=== PATIENT | male | born 1945 | race Caucasian/White ===

== ENCOUNTER 2021-06-21 23:50 | Emergency (ER) | payer MEDICARE, SELFPAY ==
[2021-06-22 00:01] VITALS: BP 100/51; PULSE 75; RESP 16; O2SAT 95; BMI 31.8
--- NOTE | 2021-06-22 00:14 | ED_ITS ---
History of Present Illness General Chief Complaint: Epistaxis Stated Complaint: Epistaxis Time Seen by Provider: 06/22/21 00:13 Source: patient and EMS Mode of arrival: EMS Limitations: no limitations History of Present Illness HPI Narrative: Patient is on Eliquis complaining of epistaxis off and on from the right nostril history of same in the past no black stools not actively bleeding at this time no dizziness no passing-out Related Data Allergies Allergy/AdvReac Type Severity Reaction Status Date / Time No Known Allergies Allergy Verified 06/22/21 00:07 Review of Systems Review of Systems: Yes all other systems are reviewed and are negative [facility] Social History Social History Advance Directives: No Physical Exam Vital Signs: Vital Signs: Last Vital Signs Pulse 75 06/22/21 00:01 Resp 16 06/22/21 00:01 BP 100/51 L 06/22/21 00:01 Pulse Ox 95 06/22/21 00:01 BMI result Body Mass Index 31.8 Appearance: Alert. Oriented X3. No acute distress. Eyes: No pallor or icterus ENT: Pharynx normal. Oral Mucosa moist dried blood on the septum on the right side no blood clots Neck: Normal inspection. Neck supple. CVS: Normal heart rate and rhythm. Pulses normal. Respiratory: No respiratory distress. Equal air entry bilateral, no wheezing/rales/rhonchi Abdomen: Soft and nontender. Bowel sounds are present, no mass palpable, no CVA tenderness Skin: Skin warm and dry. Normal skin color. Normal skin turgor. Extremities: No lower extremity edema. No calf tenderness Neuro: Oriented X 3. No motor deficit. MDM - Epistaxis MDM Narrative Medical decision making narrative: Patient with minor anterior epistaxis secondary to use of Eliquis area was cauterized bleeding stopped lab workup showed elevated creatinine to 1.58 BUN 72 patient does not know about renal insufficiency no labs available will give him a L bolus advised to follow-up with PCP Differential Diagnosis Differential diagnosis: Likely anterior epistaxis Lab Data Attestation: I reviewed the patient's lab results. Result diagrams: 06/22/21 00:42 06/22/21 00:42 Labs: Lab Results 06/22/21 06/22/21 06/22/21 Range/Units 00:42 00:42 00:42 WBC 8.8 (4.8-10.8) X10*3/uL RBC 3.51 L (4.60-5.80) X10*6/uL Hgb 10.7 L (14.0-18.0) g/dl Hct 32.2 L (42.0-52.0) % MCV 91.7 (80.0-98.0) fL MCH 30.5 (27.0-33.0) pg MCHC 33.2 (31.0-36.0) g/dl RDW 13.6 (11.0-16.0) % Plt Count 250 (160-400) X10*3/uL MPV 10.9 (9.4-12.4) fL Immature Gran % (Auto) 0.2 (0.0-0.4) % Neut % (Auto) 57.0 (45-73) % Lymph % (Auto) 28.4 (20-40) % [place] % (Auto) 11.3 H (2-11) % Eos % (Auto) 2.4 (0-4) % Baso % (Auto) 0.7 (0-2) % Lymph # (Auto) 2.5 (1.2-4.9) X10*3/uL [place] # (Auto) 1.0 (0.1-1.2) X10*3/uL Eos # (Auto) 0.2 (0.0-0.4) X10*3/uL Baso # (Auto) 0.1 (0.0-0.2) X10*3/uL Abs Immat Gran (auto) 0.02 (0.00-0.03) X10*3/uL Absolute Neuts (auto) 5.0 (2.0-8.3) x10*3/uL Absolute Nucleated RBC 0.000 (0.0-0.012) X10*3/uL Nucleated RBC % (auto) 0.0 (0.0-0.2) /100WBC PT 14.0 H (9.9-13.0) SEC INR 1.2 H (0.9-1.1) APTT 48.7 H (24.1-38.0) SEC Sodium 138 (135-145) mmol/L Potassium 4.4 (3.3-5.1) mmol/L Chloride 108 (96-108) mmol/L Carbon Dioxide 20 L (22-29) mmol/L Anion Gap 14 (12-20) BUN 72 H (9-16) mg/dL Creatinine 1.58 H (0.5-1.4) mg/dL Estim Creat Clear Calc 49.3 Estimated GFR 43 Random Glucose 149 H (60-115) mg/dL Calcium 8.8 (8.4-10.2) mg/dL Total Bilirubin 0.3 (0.0-1.0) mg/dL AST 15 (5-37) U/L ALT 15 (0-40) U/L Alkaline Phosphatase 76 (39-117) U/L Total Protein 6.5 (6.5-8.0) g/dL Albumin 3.5 (3.5-5.0) g/dL Procedures Epistaxis Control Time Out Performed: Yes Nostril: Yes right Direct inspection: Yes anterior source identified Direct inspection method: Yes nasal rhinoscope Epistaxis treatment: Yes silver nitrate cautery Results of treatment: Yes bleeding controlled Complications: Yes none Discharge Plan Discharge Clinical Impression: Epistaxis Patient Disposition: Xfer LTC Transfer Details: To alf Instructions: Nosebleed (ED) Additional Instructions: Local care as advised If bleeding recurs hold Eliquis for a day and restart Eliquis if no bleeding
[2021-06-22 00:18] VITALS: BP 114/66; PULSE 84; O2SAT 95
[2021-06-22] MEDS: Silver Nitrate Applicator STICK..EA. 1 APPL TOPICAL (00:35)
[2021-06-22 00:48] LABS: MANUAL DIFF FLAG NO
[2021-06-22 00:54] LABS: Basophils Absolute Auto 0.1 X10*3/uL (0.0-0.2); Basophils Percent Auto 0.7 % (0-2); Eosinophils Absolute Auto 0.2 X10*3/uL (0.0-0.4); Eosinophils Percent Auto 2.4 % (0-4); Hematocrit 32.2 % (42.0-52.0); Hemoglobin 10.7 g/dl (14.0-18.0); Imm Gran Abs Auto 0.02 X10*3/uL (0.00-0.03); Imm Gran Pct Auto 0.2 % (0.0-0.4); Lymphocytes Absolute Auto 2.5 X10*3/uL (1.2-4.9); Lymphocytes Percent Auto 28.4 % (20-40); Mean Corpuscular HGB Conc 33.2 g/dl (31.0-36.0); Mean Corpuscular Hemoglobin 30.5 pg (27.0-33.0); Mean Corpuscular Volume 91.7 fL (80.0-98.0); Mean Platelet Volume 10.9 fL (9.4-12.4); Monocytes Percent Auto 11.3 % (2-11); Platelet Count 250 X10*3/uL (160-400); Red Blood Count 3.51 X10*6/uL (4.60-5.80); Red Cell Distribution Width 13.6 % (11.0-16.0); White Blood Count 8.8 X10*3/uL (4.8-10.8)
[2021-06-22 01:02] LABS: INTERNATIONAL NORM RATIO 1.2 (0.9-1.1)
[2021-06-22 01:04] LABS: Partial Thromboplastin Time 48.7 SEC (24.1-38.0)
[2021-06-22 01:10] LABS: Alanine Aminotransferase 15 U/L (0-40); Albumin Level 3.5 g/dL (3.5-5.0); Alkaline Phosphatase 76 U/L (39-117); Anion Gap 14 (12-20); Aspartate Amino Transferase 15 U/L (5-37); Bilirubin Total 0.3 mg/dL (0.0-1.0); Blood Urea Nitrogen 72 mg/dL (9-16); Calcium 8.8 mg/dL (8.4-10.2); Carbon Dioxide 20 mmol/L (22-29); Chloride 108 mmol/L (96-108); Creatinine Clr Calc Pharmacy 49.3; Estimated Glomerular Filt Rate 43; Glucose Random 149 mg/dL (60-115); Potassium 4.4 mmol/L (3.3-5.1); Sodium 138 mmol/L (135-145); Total Protein 6.5 g/dL (6.5-8.0)
--- NOTE | 2021-06-22 01:34 | PC.NURSE ---
PT NOSE CAUTERIZED WITH SILVER NITRATE BY DR VARGAS NOSE NOT ACTIVELY BLEEDING. PT WILL BE MOVED TO MAIN ED FOR FLUIDS AND MONITORING TILL RIDE CAN BRING HOME BACK TO SNF. REPORT GIVEN TO GELACIO LOU.
[2021-06-22] MEDS: 0.9 % Sodium Chloride 1,000 ML 999 ML IV (02:42)
--- NOTE | 2021-06-22 03:37 | PC.NURSE ---
[facility]
--- NOTE | 2021-06-22 04:12 | PC.NURSE ---
Pt was brought from [facility] [place] [facility] in order to obtain IVF's prior to DC. I placed a peripheral IV in R wrist and infused 1L NS without incident. pt has been D/C'd back to [facility] via EMS. nursing report given to RN at [facility]
== END 2021-06-22 04:19 ==
PROVIDERS: Emergency Provider Internal Medicine; PCP Family Medicine Geriatric Medicine
DX: R04.0 Epistaxis (principal); Z79.01 Long term (current) use of anticoagulants; Z79.899 Other long term (current) drug therapy
CPT/HCPCS: 30901; 36415; 80053; 85025; 85610; 85730; 96360; 99283; 99284